=== PATIENT | female | born 1985 | race African-American/Black ===

== ENCOUNTER 2019-06-07 23:23 | Emergency (ER) | payer MEDICAID, OTHER ==
[~2019-06-07] VITALS: Ht 157.5 cm; Wt 72.6 kg
[~2019-06-07 23:23] MED LIST: KEFLEX500 MG ORAL
--- NOTE | 2019-06-07 23:49 | NUR ---
ED Nurse Note: pt presents to ED needing a return to work note. pt states that she missed work and never received a return to work note, her job would not let her come back without one. pt denies any pain or symptoms at this time. would like a note for 1-2 days in order to return to work
[2019-06-07 23:51] VITALS: BP 131/74
[2019-06-07 23:55] VITALS: BP 131/74
--- NOTE | 2019-06-07 23:55 | NUR ---
ED Nurse Note: Pt cleared by health care Provider for discharge. DC instructions and work note were given and explained to pt and verbalized understanding of teachings. All medical deviecs such as ID band removed. Pt is AAO x4, ambulatory and left with all personal belongings.
--- NOTE | 2019-06-07 23:55 | Emergency Room Report ---
History of Present Illness General Chief Complaint: General Complaint Source: Patient Present Illness HPI Is a 34-year-old female with no past medical history. She presents with treatment of headache. Actually headache occurred yesterday. She says she has been working a lot and was working for many hours and was fatigued and tired. Still she had a headache and she slept. She is better now. No headache now. Her work said that she needs a note to come back to work. Patient denies any nausea vomiting. Denies any fever chills but no pain at this moment. Allergies: Coded Allergies: No Known Allergies (Unverified , 06/07/19) Patient History Past Medical History: see triage record, old chart reviewed Past Surgical History: none Pertinent Family History: none Social History: Denies: smoking Now: No Immunizations: other Reviewed Nursing Documentation: PMH: Agreed; PSxH: Agreed Nursing Documentation-PMH Past Medical History: No Stated History Review of Systems Eye: Denies: eye pain, blurred vision ENT: Denies: ear pain, nose congestion, throat swelling Respiratory: Denies: cough, shortness of breath Cardiovascular: Denies: chest pain, palpitations Gastrointestinal: Denies: abdominal pain, diarrhea, nausea, vomiting Musculoskeletal: Denies: back pain, joint pain Skin: Denies: rash Neurological: Reports: headache; Denies: numbness Endocrine: Denies: increased thirst, increased urine Hematologic/Lymphatic: Denies: easy bruising All Other Systems: negative except mentioned in HPI Physical Exam Vital Signs Date Time Temp Pulse Resp B/P (MAP) Pulse Ox O2 Delivery O2 Flow Rate FiO2 06/07/19 23:43 98.1 81 16 131/74 (93) 98 Room Air Also normal Sp02 EP Interpretation: reviewed, normal General Appearance: well appearing, no apparent distress, alert Head: normocephalic, atraumatic Eyes: bilateral eye PERRL, bilateral eye EOMI ENT: hearing grossly normal, normal pharynx Neck: full range of motion, supple, no meningismus Respiratory: chest non-tender, lungs clear, normal breath sounds Cardiovascular #1: regular rate, rhythm, no murmur Gastrointestinal: normal bowel sounds, non tender, no mass, no organomegaly, no bruit, non-distended Musculoskeletal: back normal, normal range of motion, gait/station normal Psychiatric: mood/affect normal Medical Decision Making Diagnostic Impression: Primary Impression: Headache Qualified Codes: G44.209 - Tension-type headache, unspecified, not intractable ER Course Patient with a headache that resolved. No evidence of TIA, CVA, meningitis, bleed or other neoplastic process. Will discharge home. Last Vital Signs Date Time Temp Pulse Resp B/P (MAP) Pulse Ox O2 Delivery O2 Flow Rate FiO2 06/07/19 23:43 98.1 81 16 131/74 (93) 98 Room Air Status: unchanged Disposition: HOME, SELF-CARE Condition: Stable Additional Instructions: Follow-up with your doctor in 7 days. Return if worse. Suresh Bruce MD Jun 07, 2019 23:55
== END 2019-06-07 23:59 | disposition home or self-care (01) ==
LOC: EMR 23:59
DX: G44.209 Tension-type headache, unspecified, not intractable (principal)
CPT/HCPCS: 99281